=== PATIENT | female | born 1975 | race Native Hawaiian/Other Pacific Islander ===

== ENCOUNTER 2021-06-15 11:49 | Outpatient (CLI) | payer BC | END 2021-06-15 18:53 | disposition home or self-care (01) | LOC: RAD 11:49 | PROVIDERS: ATTEND Nurse Practitioner Family | DX: J20.9 Acute bronchitis, unspecified (principal) ==

== ENCOUNTER 2021-08-10 08:42 | Outpatient (CLI) | payer BC | END 2021-08-10 18:59 | disposition home or self-care (01) | LOC: RESP 08:42 | PROVIDERS: ATTEND Nurse Practitioner Family | DX: J44.9 Chronic obstructive pulmonary disease, unspecified (principal) ==